=== PATIENT | female | born 1990 | race Caucasian/White ===

== ENCOUNTER 2018-04-14 18:51 | Emergency (ER) | payer BC ==
[2018-04-14 18:57] VITALS: BP 124/66
[2018-04-14] MEDS ORDERED: ONDANSETRON HCL 8 MG TABLET PO ONE (19:06)
[2018-04-14] MEDS ORDERED: MECLIZINE HCL 25 MG TABLET PO ONE ×2 (19:06→19:07)
--- NOTE | 2018-04-14 19:13 | ER Document Report ---
HPI - HPI Patient complains to provider of: Dizziness, ear pain Time Seen by Provider: 04/14/18 19:00 Onset: Other - 6 days Onset/Duration: Worse Quality of pain: Achy Pain Level: 3 Context: Patient states she has had ear pain for the past 6 days. Patient did see her primary doctor 4 days ago and was placed on a Z-Vasquez Flonase and Benadryl to treat for an ear infection. Patient states that she only use the Flonase once and has not been using the Benadryl since. Patient denies any fever or headache. Patient states she does have dizziness which she feels off balance that started this evening which prompted her visit today. Patient states that off-balance symptoms that did cause her to vomit. Patient denies any head injury. Associated Symptoms: Earache, Vomiting, Other - Feeling off balance. denies: Fever, Headache Exacerbated by: Standing Relieved by: Denies Similar symptoms previously: No Recently seen / treated by doctor: Yes - ROS ROS below otherwise negative: Yes Systems Reviewed and Negative: Yes All other systems reviewed and negative - CONSTITUTIONAL Constitutional: DENIES: Fever, Chills - EENT EENT: REPORTS: Ear Pain. DENIES: Congestion - NEURO Neurology: REPORTS: Dizzinesss / Vertigo. DENIES: Headache - RESPIRATORY Respiratory: DENIES: Trouble Breathing, Coughing - GASTROINTESTINAL Gastrointestinal: REPORTS: Nausea, Patient vomiting. DENIES: Abdominal Pain - MUSCULOSKELETAL Musculoskeletal: DENIES: Neck Pain - DERM Skin Color: Normal Skin Problems: None Past Medical History - General Information source: Patient - Social History Smoking Status: Never Smoker Frequency of alcohol use: Occasional Drug Abuse: None Occupation: Law enforcement Lives with: Family Family History: Reviewed & Not Pertinent - Medical History Medical History: Negative Past Surgical History: Reports: Hx Tonsillectomy Vertical Provider Document - CONSTITUTIONAL Agree With Documented VS: Yes Exam Limitations: No Limitations General Appearance: WD/WN, No Apparent Distress - INFECTION CONTROL TRAVEL OUTSIDE OF THE [place] IN LAST 30 DAYS: No - HEENT HEENT: Atraumatic, Normocephalic, PERRLA, Tympanic Membrane Bulging - Serous effusion bilaterally. negative: Pharyngeal Exudate, Pharyngeal Tenderness, Pharyngeal Erythema, Tympanic Membrane Red Notes: No nystagmus - NECK Neck: Normal Inspection, Supple. negative: Lymphadenopathy-Left, Lymphadenopathy-Right Notes: No meningismus - RESPIRATORY Respiratory: Breath Sounds Normal, No Respiratory Distress - CARDIOVASCULAR Cardiovascular: Regular Rate, Regular Rhythm, No Murmur - BACK Back: Normal Inspection - MUSCULOSKELETAL/EXTREMETIES Musculoskeletal/Extremeties: TASNEEM DIETRICH - NEURO Level of Consciousness: Awake, Alert, Appropriate Motor/Sensory: No Motor Deficit, No Sensory Deficit Notes: No focal neurologic deficit - DERM Integumentary: Warm, Dry, No Rash Course - Re-evaluation Re-evalutation: 04/14/18 Patient presents with symptoms worrisome for vertigo. Patient encouraged to finish her antibiotics as previously prescribed and will treat symptomatically here. Discussed worsening symptoms that patient should return immediately for. Patient denies any fever headache neck pain, or drainage from the ears. No concern for malignant otitis. - Vital Signs Vital signs: Temp Pulse Resp BP Pulse Ox 98.2 F 73 20 124/66 99 04/14/18 18:56 04/14/18 18:56 04/14/18 18:56 04/14/18 18:56 04/14/18 18:56 Discharge - Discharge Clinical Impression: Vertigo, hx recent otitis media Condition: Stable Instructions: Antinausea Medication ([facility]), Vertigo ([facility]) Additional Instructions: Return immediately for any new or worsening symptoms Followup with your primary care provider, call tomorrow to make a followup appointment Finish your antibiotics as previously prescribed Prescriptions: Meclizine HCl [Antivert 25 mg Tablet] 25 mg PO ASDIR PRN #15 tablet PRN Reason: Ondansetron HCl [Zofran 4 mg Tablet] 1 - 2 tab PO Q6 PRN #15 tablet PRN Reason: Forms: Return to Work Referrals: KEVEN BENITEZ III, MD [NO LOCAL MD] - Follow up as needed
== END 2018-04-14 19:26 | disposition home or self-care (01) ==
LOC: ER 18:51
DX: R42 Dizziness and giddiness (principal); H66.90 Otitis media, unspecified, unspecified ear; T36.8X6A Underdosing of other systemic antibiotics, initial encounter; T45.0X6A Underdosing of antiallergic and antiemetic drugs, initial encounter; Z91.128 Patient's intentional underdosing of medication regimen for other reason; Z91.14 Patient's other noncompliance with medication regimen; R11.2 Nausea with vomiting, unspecified
CPT/HCPCS: 99283; S0119